=== PATIENT | female | born 1980 | race Caucasian/White ===

== ENCOUNTER 2016-06-20 20:41 | Inpatient (IN) | payer OTHER ==
--- NOTE | ~2016-06-20 | PN ---
Unit #: [id number] #: [id number] Patient: TREVA PARSONS [id number] [facility] [address] [place] [address] [id number] MR#: [id number] NAME: TREVA PARSONS [facility]OM: [facility] Age: 35 Sex: F Admission Date: 06/20/2016 : 1980 Attending Physician: Denny Hpoper M.D. Admitting Physician: Denny Hopper M.D. Primary Care Physician: Larisa Primary Care Physician KANNAN GRANT NOTES DATE June 21, 2016 DISCUSSION Ms. Parsons is a 35-year-old, white female with a mood disorder who was seen today and chart was reviewed. Her case was discussed with the staff. She has been anxious, withdrawn, depressed, and rather seclusive to herself. Meanwhile, she has been cooperative with treatment recommendations and taking the medications and tolerating them fairly well with no reported side effects. MENTAL STATUS EXAMINATION Young white female who was casually dressed with fair personal hygiene and appears to be in no acute distress or discomfort. She was awake and alert on interaction with intact orientation. Her mood is anxious with a congruent affect. She denies any suicidal or homicidal ideations. Her insight and judgement remain slightly impaired. TREATMENT PLAN 1. We will continue on current medications and treatment protocol. Will monitor her response to the medications and make further adjustments as needed. 2. We will continue to follow up. Dictated by... Henna Glover/keyla TD: 06/23/2016 09:08 JOB #: [id number] Unit #: [id number] #: [id number] Patient: TREVA PARSONS PROGRESS NOTES Page 1 of 1 X Denny Hopper MD PROGRESS NOTE
--- NOTE | ~2016-06-20 | PN ---
Unit #: [id number] #: [id number] Patient: TREVA PARSONS [id number] [facility] [address] [place] [address] [id number] MR#: [id number] NAME: TREVA PARSONS ROOM: [facility] Age: 35 Sex: F Admission Date: 06/20/2016 : 1980 Attending Physician: Denny Hopper M.D. Admitting Physician: Denny Hopper M.D. Primary Care Physician: Primary Care Physician Larisa BRUNNER PROGRESS NOTES DATE 06/25/2016 DISCUSSION Treva Parsons is a 35-year-old female seen on 06/25/2016. The patient interviewed, chart reviewed. Obtained information from nursing staff. The patient was compliant and cooperative. Mood sad, dysphoric. The patient reported not feeling good. The patient's blood sugar was high and seen by the medical doctor. The patient still reporting feeling sad, depressed, feeling of hopelessness, worthless. Complete review of systems unremarkable. MENTAL STATUS EXAMINATION General appearance, the patient dressed casually. Attention span and concentration fair. Oriented to place and person. Mood and affect sad, depressed. Speech monotone. Thought process concrete. The patient still having passive SI. Denied any homicidal ideation, guarded, flat affect. Recent and remote memory poor. Insight and judgement poor. DIAGNOSES Major depressive disorder recurrent severe F33.2. ASSESSMENT/PLAN Advise to continue with current medication and therapeutic protocol. If needed consider further adjustment of medication. Dictated by... Henna Meredith/madelyn TD: 06/28/2016 03:42 JOB #: [id number] Unit #: [id number] #: [id number] Patient: TREVA PARSONS PROGRESS NOTES Page 1 of 1 X Ritchie Alvarado MD PROGRESS NOTE
--- NOTE | ~2016-06-20 | PN ---
Unit #: [id number] #: [id number] Patient: TREVA PARSONS [id number] [facility] [address] [place] [address] [id number] I MR#: [id number] NAME: TREVA PARSONS ROOM: [facility] Age: 35 Sex: F Admission Date: 06/20/2016 : 1980 Attending Physician: Denny Hopper M.D. Admitting Physician: Denny Hopper M.D. Primary Care Physician: Primary Care Physician Larisa BRUNNER PROGRESS NOTES DATE 06/22/2016 DISCUSSION Ms. Parsons is a 35-year-old white female with mood disorder who was seen today and chart was reviewed and case was discussed with the staff. She has been anxious, withdrawn and rather seclusive to herself. Meanwhile, she has been cooperative with treatment recommendations as she has been taking the medications and tolerating them fairly well with no reported side effects. MENTAL STATUS EXAMINATION Young white female who was casually dressed with fair personal hygiene, appears to be in no acute distress or discomfort. She was awake and alert on interaction with intact orientation. Her mood was anxious with congruent affect. She denies any suicidal or homicidal ideations. Also, denies any auditory or visual hallucinations. Her insight and judgement remains slightly impaired. TREATMENT PLAN 1. We will continue her on her current medications and treatment protocol. We will monitor her response and make further adjustments as needed. 2. We will continue to follow up. Dictated by... Henna Glover/madelyn TD: 06/25/2016 22:44 JOB #: [id number] Unit #: [id number] #: [id number] Patient: TREVA PARSONS PROGRESS NOTES Page 1 of 1 X Denny Hopper MD PROGRESS NOTE
--- NOTE | ~2016-06-20 | HP ---
Unit #: [id number] #: [id number] Patient: TREVA ALLEN [id number] [place] [address] [id number] I MR#: [id number] NAME: TREVA ALLEN ROOM: [facility] Age: 35 Sex: F Admission Date: 06/20/2016 : 1980 Attending Physician: Denny Hopper M.D. Admitting Physician: Denny Hopper M.D. Primary Care Physician: Primary Care Physician No HISTORY AND PHYSICAL HISTORY OF PRESENT ILLNESS Treva is a 35 year old admitted to [address] [place] [address] with depression after an overdose of Vistaril. She was medically cleared and then transferred to [facility] for psychiatric care. PAST MEDICAL HISTORY 1. Morbid obesity. 2. Diabetes mellitus, newly diagnosed. 3. Degenerative disc disease. 4. High blood pressure. 5. Hypothyroidism. PAST SURGICAL HISTORY 1. section x2. 2. Cholecystectomy. 3. D & c x 2. ALLERGIES No known drug allergies. SOCIAL HISTORY Smokes one pack per day. Denies alcohol and illicit drug use. FAMILY HISTORY Medically noncontributory. REVIEW OF SYSTEMS CONSTITUTIONAL: No fever or chills. HEENT: Denies any sore throat, ear pain or runny nose. CARDIOVASCULAR: Denies chest pain, irregular heart rhythm or palpitations. CHEST: Denies shortness of breath or cough. No hemoptysis. GASTROINTESTINAL: Denies nausea, vomiting, diarrhea or chronic constipation. ENDOCRINE: Denies history of increased thirst or urination. No recent significant weight loss or gain. GENITOURINARY: Denies dysuria, frequency, or hematuria. SKIN: Denies any rashes. HEMATOLOGIC: Denies history of increased bleeding or bruising. MUSCULOSKELETAL: Denies any hot, swollen joints. No generalized muscle pain. NEUROLOGIC: Denies problems with vision or speech. No frequent, severe headaches. No numbness, tingling or weakness in any extremities. Denies Unit #: [id number] #: [id number] Patient: TREVA ALLEN loss of bladder or bowel control. CURRENT MEDICATIONS 1. Zoloft 100 mg q day 2. Synthroid 0.1 mg q day 3. Zestril 20 mg q day 4. Vistaril 25 mg q.h.s. 5. Levemir 10 units q h.s. 6. Neurontin 100 mg b.i.d. 7. BuSpar 5 mg b.i.d. 8. NovoLog per sliding scale 9. Desyrel p.r.n. 10. Milk of Magnesia p.r.n. 11. Maalox p.r.n. 12. Tylenol p.r.n. 13. Nicotine patch 21 mg daily PHYSICAL EXAMINATION GENERAL: Alert, well-nourished, in no apparent distress. VITAL SIGNS: Blood pressure 126/80, heart rate 80, respirations 16, temperature 98.6. WEIGHT: 2702 pounds. HEIGHT: 5'9". SKIN: Warm and dry without rash or lesion. HEENT: Normocephalic. TMs not viewed. Oral and nasal passages clear. Conjunctivae clear. Pupils equal, round and reactive to light and accommodation. Extraocular movements intact. NECK: Supple without lymphadenopathy or thyromegaly. HEART: Regular rate and rhythm without murmur. LUNGS: Clear. ABDOMEN: Soft, nontender. : Not done. EXTREMITIES: No evidence of cyanosis, clubbing or edema. Moves all extremities without focal deficit. NEUROLOGICAL: Grossly within normal limits. Cranial Nerves: II: Visual bruno are intact. III, IV AND : Extraocular movements are intact. Pupils are equal, round and reactive to light. V: Facial sensation is grossly normal. VII: Facial movements and expression are normal. VIII: Auditory acuity grossly intact. IX, X: Uvula is midline. Phonation is normal. XI: Patient shrugs shoulders and turns head normally. XII: Tongue protrudes in the midline. Sensory and Motor Function: Sensory and motor sensation is grossly normal. Motor: moves all extremities well. Coordination: Gait is normal. Deep Tendon Reflexes: Intact. IMPRESSION Psychiatric admission RECOMMENDATIONS PSYCHIATRIC: Per psychiatrist. MEDICAL: 1. I see no contraindications to participating in facility's activities. 2. Continue Synthroid, Zestril, Levemir and NovoLog. The patient knows she needs to follow up with her primary care physician. MEDICAL PROGNOSIS Unit #: [id number] #: [id number] Patient: TREVA ALLEN. MEDICAL CONDITION Stable. Dictated by... Ashwini Donnelly P.A.-C. for ImrHenna Yao/madelyn TD: 06/21/2016 21:27 JOB #: [id number] HISTORY AND PHYSICAL Page 1 of 1 X Ashwini Donnelly HISTORY AND PHYSICAL
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
--- NOTE | ~2016-06-20 | CO ---
Unit #: [id number] #: [id number] Patient: TREVA ALLEN [id number] [place] [address] [id number] I MR#: [id number] NAME: TREVA ALLEN ROOM: [facility] Age: 35 Sex: F Admission Date: 06/20/2016 : 1980 Attending Physician: eDnny Hopper M.D. Primary Care Physician: Primary Care Physician No Consultation Date: 06/21/2016 CONSULTATION REPORT DIANE Palomo is a 35-year-old, morbidly obese, young woman, who was recently diagnosed with diabetes mellitus. She never started recommended treatment. At the time of admission, she was started on Levemir 10 units q.h.s. and routine NovoLog sliding scale. Accu-Cheks were monitored a.c. and h.s. On the morning of 06/22/2016, her blood sugar was greater than 350. Levemir was increased to 15 units subcu q.h.s., and she was started on Glucophage 500 mg one p.o. b.i.d. We will continue to monitor Accu-Cheks. Again, she knows she needs to follow up with primary care. Dictated by... Ashwini Donnelly P.A.-C. for Henna Muñiz/delores TD: 06/23/2016 06:10 JOB #: [id number] CONSULTATION REPORT Page 1 of 1 X Ashwini Donnelly X CONSULTATION REPORT
--- NOTE | ~2016-06-20 | PN ---
Unit #: [id number] #: [id number] Patient: TREVA PARSONS [id number] [facility] [address] [place] [address] [id number] I MR#: [id number] NAME: TREVA PARSONS ROOM: [facility] Age: 35 Sex: F Admission Date: 06/20/2016 : 1980 Attending Physician: Denny Hopper M.D. Admitting Physician: Denny Hopper M.D. Primary Care Physician: Primary Care Physician Larisa GRANT NOTES DATE OF SERVICE: 06/23/2016 SUBJECTIVE Ms. Parsons is a 35-year-old white female, who was seen today and chart was reviewed and the case was discussed with the staff. She has been anxious, withdrawn, depressed, and seclusive to herself. Meanwhile, she has been cooperative with the treatment recommendations and has been taking the medications and tolerating them fairly well with no reported side effects. MENTAL STATUS EXAMINATION Young white female, who was casually dressed with fair personal hygiene, appears to be in no acute distress or discomfort. She was awake and alert on interaction with intact orientation. Her mood was anxious and depressed with a congruent affect. She denies any suicidal or homicidal ideations. Her insight and judgment remain slightly impaired. TREATMENT PLAN 1. We will continue her on her current medications and treatment protocol and we will monitor her response to the medications and make further adjustments as needed. 2. We will continue to follow up. Dictated by... Henna Glover/deolres TD: 06/23/2016 17:35 JOB #: [id number] KANNAN PROGRESS NOTES Page 1 of 1 X Denny Hopper MD PROGRESS NOTE
--- NOTE | ~2016-06-20 | DS ---
Unit #: [id number] #: [id number] Patient: TREVA PARSONS [id number] [facility] [address] [place] [address] [id number] I MR#: [id number] NAME: TREVA PARSONS ROOM: [facility] Age: 35 Sex: F Admission Date: 06/20/2016 : 1980 Discharge Date: 06/26/2016 Attending Physician: Denny Hopper M.D. Primary Care Physician: Primary Care Physician No DISCHARGE SUMMARY IDENTIFYING DATA Ms. Parsons is a 35-year-old single white female, who is a resident of [place], [place], and was transferred to us from [facility] in [place], [place]. DISCHARGE DIAGNOSES Psychiatric: Major depressive disorder, recurrent, moderate, without psychotic features. Medical: Diabetes mellitus, hypertension, obesity, hypothyroidism. Stressors: Moderate psychosocial stressors. HISTORY OF PRESENT ILLNESS Please see initial psychiatric evaluation for details. PAST PSYCHIATRIC HISTORY Please see initial psychiatric evaluation for details. PAST MEDICAL HISTORY Please see initial psychiatric evaluation for details. HOSPITAL COURSE The patient was admitted to the adult psychiatric unit at [facility] and was oriented to the hospital environment. Routine p.r.n. medications were initiated, and she was started back on her home medications and medications were maintained and Zoloft was increased to 100 mg a day to better address her depressive symptoms and she was initially seen to be very withdrawn, seclusive to herself and was describing herself to be in emotional distress and not feeling good; however, she was polite and pleasant and cooperative with treatment recommendation and was taking the medications regularly and was tolerating them fairly well and was able to show a decent and therapeutic response and was willing to continue treatment on an outpatient basis and as such, it was decided that she will be discharged home and will continue treatment on an outpatient basis. DISCHARGE MEDICATIONS Zoloft 100 mg a day for depression, BuSpar 5 mg b.i.d. for anxiety, Neurontin 100 mg b.i.d. for anxiety, Glucophage 500 mg b.i.d. for diabetes, Zestril 20 mg a day for hypertension, Synthroid 0.1 mg a day for hypothyroidism, Levemir 25 units at bedtime for diabetes. DISCHARGE CONDITION Stable. Unit #: [id number] #: [id number] Patient: TREVA PARSONS PROGNOSIS Fair. Dictated by... Henna Glover/delores TD: 06/26/2016 07:25 JOB #: [id number] DISCHARGE SUMMARY Page 1 of 1 X Denny Hopper MD X DISCHARGE SUMMARY
--- NOTE | ~2016-06-20 | CO ---
Unit #: [id number] #: [id number] Patient: TREVA ALLEN [id number] [facility] [address] [place] [address] [id number] MR#: [id number] NAME: TREVA ALLEN ROOM: [facility] Age: 35 Sex: F Admission Date: 06/20/2016 : 1980 Attending Physician: Denny Hopper M.D. Primary Care Physician: Primary Care Physician No Consultation Date: 06/25/2016 CONSULTATION REPORT ORDERING PROVIDER Dr. Hopper. REASON FOR CONSULT Increased blood sugars. SUBJECTIVE The patient has a fairly newly diagnosed diabetic. She is currently on Levemir 15 units once daily and sliding scale NovoLog. Her fasting blood sugars continue to remain high even with the current dosing of medication with fasting blood sugars ranging between 227 and 318. At this time, we will increase her Levemir to 25 units daily and continue her on sliding scale insulin. Dictated by... Roxie Freeman A.P.R.N. for Henna Muñiz/delores TD: 06/25/2016 14:24 JOB #: [id number] CONSULTATION REPORT Page 1 of 1 X ROXIE FREEMAN APRN CONSULTATION REPORT
--- NOTE | ~2016-06-20 | PN ---
Unit #: [id number] #: [id number] Patient: TREVA PARSONS [id number] [facility] [address] [place] [address] [id number] I MR#: [id number] NAME: TREVA PARSONS ROOM: [facility] Age: 35 Sex: F Admission Date: 06/20/2016 : 1980 Attending Physician: Denny Hopper M.D. Admitting Physician: Henna Glover PROGRESS NOTES DATE OF SERVICE: 06/24/2016 DISCUSSION Treva Parsons is a 35-year-old white female, seen on 06/24/2016 on [facility]. The patient reports that she was admitted with overdose, feeling better, but reports that her depression is not getting better. The patient reports taking Zoloft, currently on Levemir, trazodone, Glucophage, Zoloft 100 mg daily, started on . The patient is also taking Neurontin and BuSpar. The patient is isolative, flat affect, sad and dysphoric. REVIEW OF SYSTEMS Complete review of systems unremarkable. MENTAL STATUS EXAMINATION General appearance, the patient dressed casually in hospital attire. Attention span and concentration, fair. Oriented in time, place, and person. Mood and affect were sad, dysphoric, flat. Speech, monotone. Thought process, concrete. The patient denied any suicidal ideation, but passive SI. Denied any psychotic symptom. Recent and remote memory, poor. Insight and judgment, poor. DIAGNOSIS Major depressive disorder, recurrent, severe. ASSESSMENT AND PLAN Advised to continue with current medication and therapeutic protocol. If needed, consider further adjustment of medication. The patient was advised to wait as the medications started recently. Dictated by... Henna Meredith/delores TD: 06/25/2016 01:55 JOB #: [id number] Unit #: [id number] #: [id number] Patient: TREVA PARSONS PROGRESS NOTES Page 1 of 1 X Ritchie Alvarado MD PROGRESS NOTE
[2016-06-21 12:33] LABS: BASOPHIL% 0.6 % (0-2.5); EOSINOPHIL# 0.2 X10e3 (0-0.7); EOSINOPHIL% 3.5 % (0.0-7.0); HEMATOCRIT 41.3 % (35.0-45.0); HEMOGLOBIN 13.9 gm/dL (12.0-16.0); LYMPHOCYTE# 1.6 X10e3 (1.0-3.5); LYMPHOCYTE% 33.9 % (17.0-45.0); MEAN CELL VOLUME 90.4 FL (83-96); MEAN CORPUSCULAR HEMOGLOBIN 30.3 PG (28-34); MEAN CORPUSCULAR HGB CONC 33.5 g/dL (30-36); MEAN PLATELET VOLUME 10.6 FL (6.5-11.5); MONOCYTE# 0.2 X10e3 (0-1.0); MONOCYTE% 5.3 % (3.0-12.0); NEUTROPHIL# 2.6 X10e3 (1.5-7.1); NEUTROPHIL% 56.7 % (40-75); RED BLOOD COUNT 4.57 X10e (3.90-5.30); WHITE BLOOD COUNT 4.7 X10e3 (4.0-10.5)
[2016-06-21 12:35] LABS: URINE APPEARANCE CLEAR; URINE BILIRUBIN NEG (NEG); URINE BLOOD NEG (NEG); URINE COLOR YELLOW; URINE GLUCOSE >1000 MG/DL (NEG); URINE KETONE NEG (NEG); URINE LEUKOCYTE ESTERASE NEG (NEG); URINE NITRATE NEG (NEG); URINE PROTEIN NEG (NEG); URINE SPECIFIC GRAVITY 1.028 (1.003-1.035); URINE UROBILINOGEN 0.2 MG/DL (NEG)
[2016-06-21 12:58] LABS: DIFF IND YES; PLATELET COUNT 93 X10e3 (140-420)
[2016-06-21 13:07] LABS: PLATELET ESTIMATE DECREASED (NORMAL)
[2016-06-21 13:08] LABS: RBC NORMAL YES
[2016-06-21 13:27] LABS: THYROID STIMULATING HORMONE 29.86 uIU/ml (0.34-5.60)
[2016-06-21 13:34] LABS: FREE THYROXIN (T4) 0.6 ng/dL (0.58-1.64)
[2016-06-21 13:49] LABS: AMPHETAMINE NEG (NEG); BARBITURATES NEG (NEG); BENZODIAZEPINES NEG (NEG); COCAINE NEG (NEG); MARIJUANA NEG (NEG); OPIATES NEG (NEG); TRICYCLIC ANTIDEPRESSANTS NEG (NEG); U METHADONE NEG (NEG)
[2016-06-21 14:04] LABS: ALBUMIN SERUM 3.3 g/dL (3.5-5.0); BILIRUBIN,TOTAL 0.6 mg/dL (0.2-2.0); BUN/CREATININE RATIO 13.33; CALCIUM SERUM 8.5 mg/dL (8.4-10.2); CREATININE SERUM 0.6 mg/dL (0.6-1.4); GLOM FILT RATE Estimated 117.3 mL/min (>60); POTASSIUM 4.3 mmol/L (3.5-5.1); PROTEIN TOTAL SERUM 5.8 g/dL (6.0-8.3)
== END 2016-06-27 10:00 | disposition home or self-care (01) | DRG 885 ==
LOC: P2S 20:41 → P1E 21:47 → P2L 21:57
PROVIDERS: Psychiatry & Neurology Psychiatry
DX: F33.1 Major depressive disorder, recurrent, moderate (principal); R45.851 Suicidal ideations; E66.01 Morbid (severe) obesity due to excess calories; Z56.0 Unemployment, unspecified; F17.210 Nicotine dependence, cigarettes, uncomplicated; E11.9 Type 2 diabetes mellitus without complications; Z79.4 Long term (current) use of insulin; I10 Essential (primary) hypertension; E03.9 Hypothyroidism, unspecified
CPT/HCPCS: 80053; 80307; 81003; 82947; 84439; 84443; 84703; 85025